=== PATIENT | female | born 1980 | race Caucasian/White ===

== ENCOUNTER 2017-04-20 02:50 | Observation (INO) | payer OTHER ==
[~2017-04-20] VITALS: Ht 167.6 cm; Wt 67.8 kg
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
--- NOTE | 2017-04-20 06:49 | NUR ---
PT NOT ABLE TO STATE WHAT MONTH OR SEASON IT IS, PT NOT ABLE TO STATE WHERE SHE IS. PT ASKS TWICE "IS KOLBY AROUND?" PT INFORMED THAT NO ONE CAME INTO THE HOSPITAL WITH HER, SHE WAS BROUGHT BY EMS. PT DENIES PAIN, MOANS OFF AND ON, STATES "I FEEL CRUMMY". PT IS DRY HEAVING OCCASIONALLY. PT NOT ABLE TO ANSWER QUESTIONS EVEN THOUGH HER EYES ARE OPEN AND SHE APPEARS AWAKE, LOOKS IF SHE IS HAVING EXPRESSIVE DYSPHAGIA.
--- NOTE | 2017-04-20 07:35 | NUR ---
BEDSIDE REPORT RECEIVED FROM DIANDRA COTA. PT SLEEPING IN BED, LYING ON HER STOMACH. PT NOTED TO MOAN OCCASIONALLY. PT HAS BEEN HAVING DRY HEAVES WITH SMALL AMOUNT OF EMESIS. HEART RATE IN THE 90s CURRENTLY, SINUS RHYTHM. LAST BP 123/81. S;02 IS 98% ON ROOM AIR.
--- NOTE | 2017-04-20 07:46 | NUR ---
PATIENT AWAKE, ANSWERING SOME QUESTIONS. PT ABLE TO STATE HER NAME, BUT UNABLE TO TELL ME HER BIRTHDAY. PT SEEMS TO BE HAVING DIFFICULTY EXPRESSING HER WORDS. PT STATES SHE DOESN'T FEEL WELL. PT ASKED IF SHE WAS TRYING TO HARM HERSELF, TO WHICH SHE REPLIED, "YES." PATIENT THEN ASKED IF SHE IS STILL WANTING TO HURT HERSELF AND SHE STATES, "I DON'T KNOW. NOT REALLY." PT ASKED IF SHE IS SEEING ANY PRACTICIONER IN [place] TO WHICH SHE IS NOT ABLE TO STAES, BUT DOES STATE SHE IS SEEING RISA GRACE IN . PT WAS ABLE TO TELL ME SHE WAS IN [place]. PT STATES SHE HAS ATTEMPTED TO OVERDOSE BEFORE ON PILLS BUT UNABLE TO TELL ME WHAT PILLS. PT INSTRUCTED TO CALL USING CALL LIGHT BEFORE GETTING UP OUT OF BED. PT STARTING TO HAVE DRY HEAVES WITH SOME EMESIS. PT NOTED TO HAVE SEVERAL PROMINENT SCRATCH ROMERO ALL OVER HER LEFT FOREARM. WHEN ASKED ABOUT THESE ROMERO, PT STATES, "OH I DID THAT." PT UNABLE TO DESCRIBE HOW SHE SCRATCHED HER SELF. CONTINUE TO MONITOR CLOSELY. CURTAIN OPENED AND PT REMAINS IN VISIBLE LINE OF SIGHT WITH NURSE'S STATION.
--- NOTE | 2017-04-20 08:08 | NUR ---
DR. ASHRAF IN TO SEE PATIENT. PT SOMEWHAT CONVERSIVE, BUT STILL STATING SHE IS NAUSEOUS AND DOESN'T FEEL GOOD.
--- NOTE | 2017-04-20 09:26 | NUR ---
PT REPORTS SHE MOVED HERE TWO WEEKS AGO FROM [place] AND SHE USES A PHARMACY IN [place] CALLED [facility]. THIS PHARMACY CONTACTED AND REQUESTED MEDICATION LIST FROM THE LAST 6 MONTHS ON. PT'S PRIMARY CARE PROVIDER RISA GRACE ALSO CALLED AND MESSAGE LEFT TO REQUEST RECORDS FROM THIS PROVIDER.
--- NOTE | 2017-04-20 09:32 | NUR ---
PATIENT ASKED WHO HER NEXT OF KIN IS. PT STATES HER SISTER, KAREN OJEDA, WHO LIVES IN [place] IS HER NEXT OF KIN. PT ALSO REPORTS THAT HER DAUGHTER, MISTY, LIVES IN [place]. PT REPORTS THAT SHE IS CURRENTLY LIVING WITH HER BOYFRIEND, KOLBY HERE IN [place]. PT CANNOT REMEMBER HER SISTER'S NUMBER COMPLETELY AT THIS TIME, BUT SHE THINKS IT IS [phone]. PT STILL HAVING DRY HEAVES. CONTINUE TO MONITOR. PT REMAINS ON ROOM AIR WITH SPO2 99-100%.
[2017-04-20] MEDS ORDERED: ZOLOFT100 MG PO (10:30)
--- NOTE | 2017-04-20 11:12 | NUR ---
PT DEALING WITH EFFECTS OF OD. SHE WAS RESTING AT THE MOMENT-STAFF ASKED IF I COULD RETURN LATER. WILL FOLLOW NEEDED
--- NOTE | 2017-04-20 11:55 | NUR ---
PATIENT UP TO BATHROOM TO VOID. PT VOIDED 300 ML CONCENTRATED, FOUL SMELLING URINE. IV SITE INFILTRATED IN RIGHT AC. PT REPORTS BEING A HARD IV START. PT MORE TALKATIVE AT THIS TIME. CONTINUE TO MONITOR.
--- NOTE | 2017-04-20 12:25 | NUR ---
[facility] CONTACTED AT THIS TIME TO EVALUATE PATIENT. PT MORE ALERT AND CONVERSIVE. PT EATING A CLEAR LIQUID TRAY. DR. ASHRAF IN UNIT AND UPDATE GIVEN TO HIM REGARDING PATIENT. NO FURTHER ORDERS AT THIS TIME. PT GIVNE 4 MG IV ZOFRAN FOR NAUSEA. PT HAS CONTINUED TO HAVE SMALL AMOUNTS OF GREEN/YELLOWISH EMESIS. CONTINUE TO MONITOR.
--- NOTE | 2017-04-20 12:45 | NUR ---
[facility] CRISIS COUNSELOR HERE TO EVALUATE PATIENT. PT RESTING IN ROOM CALMLY.
--- NOTE | 2017-04-20 13:32 | NUR ---
OFFERED THE PATIENT REGLAN BUT SHE DENIED WANTING TO USE THIS MEDICATION. PT WANTING TO HOLD OFF ON RECEIVING THIS BECAUSE SHE STATES "WHEN I TOOK THAT IN [place], IT MADE MY LEGS TWITCH UNCONTROLLABLY." PT DENIES NEED FOR ANYTHING FURTHER AT THIS TIME. CONTINUE TO MONITOR.
--- NOTE | 2017-04-20 13:55 | NUR ---
[facility] EVALUATION COMPLETE. PT IS CLEARED TO GO HOME BUT IS GOING TO BE FOLLOWING UP WITH [facility] TODAY, TOMORROW, AND MONDAY. PT STILL HAVING SOME NAUSEA. DR. ASHRAF STATES THAT SHE CAN BE D/C HOME ONCE SHE IS NO LONGER NAUSEOUS. PT RESTING AT THIS TIME. HEART RATE CURRENTLY 60s. SP02 REMAINS >95% ON ROOM AIR.
--- NOTE | 2017-04-20 15:22 | NUR ---
PATIENT UP TO AMBULATE IN THE [place]. HEART RATE DOWN INCREASE TO THE 120s WHEN AMBULATING, BUT DROPS BACK DOWN TO 80s WHEN RESTING. PT WANTING TO TAKE A SHOWER AND PT ALSO EXPRESSING THAT SHE DOES WANT TO GO HOME. PT AMBULATES INTO THE SHOWER. IV SALINE LOCKED FOR SHOWER. CONTINUE TO MONITOR.
[2017-04-20] MEDS ORDERED: ONDANSETRON HCL4 MG PO (16:05)
--- NOTE | 2017-04-20 16:30 | EKG ---
[facility] [address] [place], [place] [address] Signed Sinus rhythm with 1st degree AV block Otherwise normal ECG No previous ECGs available Confirmed by EULOGIO ASHRAF MD ([id number]) on 04/20/2017 4:30:22 PM Electronically Signed By: EULOGIO ASHRAF MD 04/20/17 1630 PATIENT NAME: RENETTA CEJA Electrocardiogram DATE OF : 82 PHYSICIAN: EULOGIO ASHRAF MD REPORT #: [id number] REPORT IS CONFIDENTIAL AND NOT TO BE RELEASED WITHOUT AUTHORIZATION
--- NOTE | 2017-04-20 16:55 | NUR ---
PATIENT D/C HOME VIA [facility]. PT REMAINS SOMEWHAT TEARFUL UPON D/C. PT ENCOURAGED TO SEEK OUT SUPPORT AND TO FOLLOW UP WITH HER APPOINTMENTS. ALL BELONGINGS RETURNED TO PATIENT.
== END 2017-04-20 16:45 | disposition home or self-care (01) ==
LOC: ED 02:50 → CCU 02:52
PROVIDERS: ADMIT Internal Medicine
DX: T42.8X2A Poisoning by antiparkinsonism drugs and other central muscle-tone depressants, intentional self-harm, initial encounter (principal); F32.9 Major depressive disorder, single episode, unspecified; Z79.899 Other long term (current) drug therapy; Z91.5 Personal history of self-harm
CPT/HCPCS: 36415; 51701; 80048; 80053; 80176; 81001; 83735; 84443; 84703; 85025; 96360; 96361; 96374; 99285; G0378; G0480; J2405; J7030; J7120

== ENCOUNTER 2019-09-06 08:50 | Inpatient (IN) | payer OTHER ==
[~2019-09-06] VITALS: Ht 175.3 cm; Wt 86.0 kg
[~2019-09-06 08:50] MED LIST: ONDANSETRON HCL4 MG PO; ZOLOFT100 MG PO
--- NOTE | 2019-09-06 14:49 | NUR ---
09/06/19 1449 Andrew Maier 1435) PATIENT ARRIVES TO ROOM AWAKE AND ALERT, ALL CHECKS DONE WITH L AND D RN.
--- NOTE | 2019-09-07 10:27 | PR ---
[facility] [address] [facility] [place] [address] Signed PP Progress Notes Datetime Report Generated by CPN: 09/07/2019 10:27 SUBJECTIVE: [id number] Pain: Within normal limits Nausea/Vomiting: Denies Vital Signs: [id number] Vital Signs: Reviewed; Within Normal Limits Notable Details: PP Hgb/Hct = 9.2/27.6 EXAM: [id number] Abdomen/Uterus: Normal Lochia: Normal Extremities: Normal Incision: Normal IMPRESSION/PLAN/PROCEDURES: [id number] Impression: Normal progression Other Impression: Mild Anemia Plan: Continue present management Procedures: None Progress Notes: Doing well, without complaint. Up moving without difficulty. OK to shower. Should be ready to go home tomorrow. Signing Physician: Scott Pickens MD Copies: ~ *Electronically Signed* 09/07/19 1027 SCOTT PICKENS MD PATIENT NAME: RENETTA CEJA PROGRESS NOTE DATE OF : 82 PHYSICIAN: SCOTT PICKENS MD RPT #: [id number] REPORT IS CONFIDENTIAL AND NOT TO BE RELEASED WITHOUT AUTHORIZATION
--- NOTE | 2019-09-07 10:49 | OR ---
[facility] [address] [place], [place] [address] Signed DATE OF OPERATION: 09/06/2019 SURGEON: Dmitry Mazariegos MD Patient of Dr. Mazariegos. PREOPERATIVE DIAGNOSES: Term labor, previous section x2. POSTOPERATIVE DIAGNOSES: Term labor, previous section x2, lower uterine segment window and extensive omental adhesions. PROCEDURE: Repeat low transverse segment section. Delivery of live male infant. [employer] SALES ENGINEER: Dr. Galan. ANESTHESIA: Spinal. ESTIMATED BLOOD LOSS: 750 mL. COMPLICATIONS: None. DRAINS: Spencer to bladder. FINDINGS: Live male infant, Apgars 8 and 9. Weight 6 pounds 1 ounce. Normal uterus except for a window approximately 5 cm in diameter in midline lower segment just above the bladder flap. There were no adhesions present. Both tubes and ovaries were normal. There was a dense omental adhesion to the entire anterior abdominal wall from approximately custodial between the symphysis and the umbilicus and up above the umbilicus. No other bowel adhesions or pelvic masses were noted. DESCRIPTION OF PROCEDURE: Electronically Signed By: DMITRY MAZARIEGOS MD 09/07/19 1049 PATIENT NAME: RENETTA CEJA OPERATIVE REPORT DATE OF : 82 REPORT #: [id number] PHYSICIAN: DMITRY MAZARIEGOS MD PCP: NO PRIMARY CARE PHYSICIAN REPORT IS CONFIDENTIAL AND NOT TO BE RELEASED WITHOUT AUTHORIZATION [facility] [address] [place], [place] [address] Signed The patient was brought to the operating room and placed in supine position. After adequate spinal anesthesia was obtained, she was prepped and draped in usual sterile fashion. Spencer catheter was placed in the bladder. A Pfannenstiel skin incision was made with a scalpel through the previous surgical scar. The subcutaneous tissue was dissected with scalpel and Bovie. The fascia was nicked with scalpel and extended in transverse fashion using curved scissors. The underlying abdominal musculature was bluntly and sharply from the fascia above and below the incision. The abdominal musculature was along the midline. The peritoneum was entered and the omentum noted to be completely adherent across the anterior abdominal wall as noted above, was quite thin in the midline and so the incision was extended through the peritoneum and omentum in the midline and then down toward the symphysis. The abdomen was palpated. No other adhesions were noted, so the Thuan self-retaining retractor was inserted into the incision and tightened in place. THen uterine window was identified, but was too low to use as the opening. The lower uterine segment was carefully nicked with scalpel and extended in transverse fashion using finger dissection. The infant was noted to be in vertex NEREYDA presentation. The head easily delivered from the incision. The rest of the was easily delivered from the incision. The cord was then doubly clamped and cut while holding the baby's head down and the then passed off table in good condition awaiting nurse. Cord blood was obtained and the placenta manually removed. Uterine cavity was explored with lap pad to remove any retained membranes. The defect was noted to be in the midline closer and almost to the bladder and below the area of dissection. An angle stitch of 0 Monocryl was placed on one end of the incision and a running locking stitch of 0 Monocryl starting at the other end used to close the incision. At the mid point where the cavity was quite thin, care was taken to make sure that the edges were brought together in the midline [id number] and to the upper portion of the incision, which was thicker. With the 1st layer closed, a 2nd running stitch of 0 Monocryl was used to imbricate the 1st layer. Prior to closing, the window was palpated and noted to be thin. No good tissue was noted on either side and was too close to the bladder to attempt the repair at this time. At this point, good hemostasis was noted. The entire pelvis was irrigated, suctioned and examined. There was slight oozing in the left angle, mostly along the peritoneal edge, which was controlled with Bovie. For further hemostasis, Tisseel was sprayed along in the left angle and along the incision because of the thin area. The Thuan self-retaining retractor was removed. The omental adhesions were clamped with Agatha clamps against the anterior abdominal wall. Two clamps were placed. The omental adhesion cut between them and the two pedicles tied with a free tie of 2-0 chromic suture. The three of these areas were done in order to remove the peritoneum from the peritoneal dissection. The peritoneum was examined. There was slight oozing at the upper edge right at the edge of the peritoneum. This was grasped with hemostat and cauterized with the Bovie. When good hemostasis was obtained, a sheet of ACell was placed over the lower uterine segment and the anterior wall of Electronically Signed By: DMITRY MAZARIEGOS MD 09/07/19 1049 PATIENT NAME: RENETTA CEJA OPERATIVE REPORT DATE OF : 82 REPORT #: [id number] PHYSICIAN: DMITRY MAZARIEGOS MD PCP: NO PRIMARY CARE PHYSICIAN REPORT IS CONFIDENTIAL AND NOT TO BE RELEASED WITHOUT AUTHORIZATION [facility] [address] [place], [place] [address] Signed peritoneum closed using running stitch of 2-0 Vicryl suture. Abdominal musculature was reapproximated using interrupted stitches of 0 Vicryl suture. The abdominal wall incision was irrigated, suctioned, and examined. Any bleeding spots were cauterized with the Bovie. There was one area in the muscle that required [id number] stitch of 0 Vicryl suture for control. The remaining Tisseel liquid was placed on the abdominal musculature and then powdered ACell sprinkled over the abdominal musculature. The fascia was closed using two running stitch of 0 Vicryl suture meeting in the midline. Subcutaneous tissue was irrigated, suctioned, and examined. Any bleeding spots cauterized with the Bovie. A 2nd vial of powdered ACell was sprinkled in the subcutaneous tissue, which was then closed using interrupted stitches of 3-0 Vicryl suture. The skin was reapproximated using skin clips. The patient tolerated the procedure well, went to recovery room in good condition. The sponge, needle, and instrument count correct at the end of procedure. The patient was informed of the window in the uterus and the strong recommendation to have of no more children because of the increased risk of rupture. MD RODY Huston/MORGANL /[id number] Copies: ~ Electronically Signed By: DMITRY MAZARIEGOS MD 09/07/19 1049 PATIENT NAME: RENETTA CEJA OPERATIVE REPORT DATE OF : 82 REPORT #: [id number] PHYSICIAN: DMITRY MAZARIEGOS MD PCP: NO PRIMARY CARE PHYSICIAN REPORT IS CONFIDENTIAL AND NOT TO BE RELEASED WITHOUT AUTHORIZATION
--- NOTE | 2019-09-08 12:46 | PR ---
[facility] [address] [facility] [place], [place] [address] Signed PP Progress Notes Datetime Report Generated by CPN: 09/08/2019 12:46 SUBJECTIVE: [id number] Pain: Within normal limits Nausea/Vomiting: Denies Vital Signs: [id number] Vital Signs: Reviewed; Within Normal Limits Notable Details: PP Hgb/Hct = 9.2/27.6 EXAM: [id number] Abdomen/Uterus: Normal Lochia: Normal Extremities: Normal Incision: Normal Exam Comments: minimal erythema above incision IMPRESSION/PLAN/PROCEDURES: [id number] Impression: Normal progression Other Impression: Mild Anemia Plan: Discharge Procedures: None Progress Notes: Doing well, wants to go home. Signing Physician: Scott Pickens MD Copies: ~ *Electronically Signed* 09/08/19 1246 SCOTT PICKENS MD PATIENT NAME: RENETTA CEJA PROGRESS NOTE DATE OF : 82 PHYSICIAN: SCOTT PICKENS MD RPT #: [id number] REPORT IS CONFIDENTIAL AND NOT TO BE RELEASED WITHOUT AUTHORIZATION
== END 2019-09-08 14:10 | disposition home or self-care (01) | DRG 787 ==
LOC: FBCO 08:50 → FBC 11:55 → FBCO 11:56 → FBC 09-08 14:10
PROVIDERS: Obstetrics & Gynecology; ADMIT General Practice
PROC: 10D00Z1 Extraction of Products of Conception, Low, Open Approach (ICD-10-PCS; principal; 2019-09-06 12:23)
DX: O34.211 Maternal care for low transverse scar from previous cesarean delivery (principal); O99.324 Drug use complicating childbirth; N85.8 Other specified noninflammatory disorders of uterus; Z3A.37 37 weeks gestation of pregnancy; Z37.0 Single live birth; O90.81 Anemia of the puerperium; D64.9 Anemia, unspecified; O99.824 Streptococcus B carrier state complicating childbirth; F12.90 Cannabis use, unspecified, uncomplicated; O99.844 Bariatric surgery status complicating childbirth
CPT/HCPCS: 01961; 36415; 59025; 85027; 99212; A9270; J0131; J0690; J1100; J1200; J1644; J1885; J2250; J2274; J2370; J2405; J2550; J2590

== ENCOUNTER 2022-05-14 13:02 | Emergency (ER) | payer OTHER ==
[~2022-05-14] VITALS: Ht 175.3 cm; Wt 71.1 kg
[2022-05-14] MEDS ORDERED: BUSPIRONE HCL7.5 MG PO (14:27)
[2022-05-14] MEDS ORDERED: OMEPRAZOLE20 MG PO (14:27)
[2022-05-14] MEDS ORDERED: QUETIAPINE FUM100 MG PO (14:27)
[2022-05-14] MEDS ORDERED: DESVENLAFAXINE100 M3 PO (14:27)
[2022-05-14] MEDS ORDERED: AMOX TR-K CLV1 EAC1 PO (17:21)
[2022-05-14] MEDS ORDERED: OXYCODONE HCL5 MG PO (17:21)
== END 2022-05-14 17:57 | disposition home or self-care (01) ==
LOC: ED 13:02
DX: K08.539 Fractured dental restorative material, unspecified (principal); K21.9 Gastro-esophageal reflux disease without esophagitis; Z88.8 Allergy status to other drugs, medicaments and biological substances; Z79.899 Other long term (current) drug therapy
CPT/HCPCS: 96372; 99282; J2270

== ENCOUNTER 2022-09-05 17:50 | Emergency (ER) | payer OTHER ==
[~2022-09-05] VITALS: Ht 175.3 cm; Wt 70.8 kg
[~2022-09-05 17:50] MED LIST changes: +AMOX TR-K CLV1 EAC1 PO; +BUSPIRONE HCL7.5 MG PO; +DESVENLAFAXINE100 M3 PO; +OMEPRAZOLE20 MG PO; +OXYCODONE HCL5 MG PO; +QUETIAPINE FUM100 MG PO
--- OUTSIDE RECORDS SUMMARY | 2022-09-05 17:53 | XMS ---
PreManage Notification: RENETTA SYLVESTER Security Identification Officer Events No recent Security Events currently on file CRITERIA MET - [facility] CARE PROVIDERS JOANA RAMOS [facility]: [facility] PHONE: [phone] [facility] Current PHONE: Unknown Armando has no Care Guidelines for this patient. [facility] VISIT COUNT (12 MO.) 2 [facility] TOTAL 2 NOTE: Visits indicate total known visits. ED/UCC VISIT TRACKING (12 MO.) 09/05/2022 17:51 [facility] [place] TYPE: Emergency COMPLAINT: - BLOOD IN STOOL 05/14/2022 13:04 [facility] [place] TYPE: Emergency COMPLAINT: - DENTAL PAIN DIAGNOSES: - Other specified disorders of teeth and supporting structures - Gastro-esophageal reflux disease without esophagitis - Other nursing home (current) drug therapy - Fractured dental restorative material, unspecified - Allergy status to other drugs, medicaments and biological substances INPATIENT VISIT TRACKING (12 MO.) No inpatient visits to display in this time frame [email or web address]
== END 2022-09-05 22:30 | disposition home or self-care (01) ==
LOC: ED 17:50
DX: K62.5 Hemorrhage of anus and rectum (principal); K21.9 Gastro-esophageal reflux disease without esophagitis; Z88.8 Allergy status to other drugs, medicaments and biological substances; Z79.899 Other long term (current) drug therapy
CPT/HCPCS: 36415; 74177; 80053; 81003; 84702; 84703; 85025; 85610; 86850; 86900; 86901; 99284-25; J7121; Q9967

== ENCOUNTER 2024-09-20 07:06 | Emergency (ER) | payer OTHER ==
[~2024-09-20] VITALS: Ht 175.3 cm; Wt 75.3 kg
[2024-09-20] MEDS ORDERED: LISINOPRIL10 MG PO (07:23)
[2024-09-20] MEDS ORDERED: AMOX TR-K CLV1 EAC1 PO (07:38)
[2024-09-20 07:52] VITALS: BP 123/80
== END 2024-09-20 07:52 | disposition home or self-care (01) ==
LOC: ED 07:06
DX: S01.85XA Open bite of other part of head, initial encounter (principal); S61.250A Open bite of right index finger without damage to nail, initial encounter; I10 Essential (primary) hypertension; K21.9 Gastro-esophageal reflux disease without esophagitis; Z88.6 Allergy status to analgesic agent; Z79.899 Other long term (current) drug therapy; W53.21XA Bitten by squirrel, initial encounter
CPT/HCPCS: 99282